=== PATIENT | male | born 1970 | race Caucasian/White ===

== ENCOUNTER 2018-01-22 13:55 | Emergency (ER) | payer MEDICAID, OTHER ==
[~2018-01-22] VITALS: Ht 170.2 cm; Wt 102.0 kg
[2018-01-22 13:58] VITALS: BP 147/84
[2018-01-22] MEDS ORDERED: HYDROcodone/APAP 5/325 TABLET ONE (14:16)
[2018-01-22] MEDS ORDERED: KETOROLAC 30 MG/1 ML ONE (14:16)
[2018-01-22] MEDS ORDERED: HYDROcodone/APAP 5/325 TABLET PO ONE (14:30)
[2018-01-22] MEDS ORDERED: KETOROLAC 30 MG/1 ML IM ONE (14:30)
== END 2018-01-22 15:12 | disposition home or self-care (01) ==
LOC: ED 14:45
DX: S39.012A Strain of muscle, fascia and tendon of lower back, initial encounter (principal); S70.02XA Contusion of left hip, initial encounter; E78.5 Hyperlipidemia, unspecified; J44.9 Chronic obstructive pulmonary disease, unspecified; I10 Essential (primary) hypertension; E11.9 Type 2 diabetes mellitus without complications; V09.9XXA Pedestrian injured in unspecified transport accident, initial encounter; Y93.01 Activity, walking, marching and hiking; Y92.89 Other specified places as the place of occurrence of the external cause; Y99.8 Other external cause status
CPT/HCPCS: 72110; 73502; 96372; 99284; J1885